=== PATIENT | female | born 1975 | race Caucasian/White ===

== ENCOUNTER → 2016-11-15 | Emergency (ER) | payer SELFPAY ==
[~2016-11-15] VITALS: Wt 80.0 kg
[~2016-11-15] MED LIST: ASPIRIN 325 MG TAB PO STA; LIDOCAINE/MYLANTA 40 ML BTL PO ONE; RANI150T9 PO
[2016-11-15 15:30] LABS: ADD SCAN DIFF NO
[2016-11-15 15:33] LABS: BASOPHIL # 0.1 10^3/ul (0.0-0.1); BASOPHILS % 0.4 % (0.0-2.0); EOSINOPHILS # 0.2 10^3/ul (0.0-0.5); EOSINOPHILS % 1.5 % (0.0-7.0); HEMATOCRIT 38.9 % (37.0-47.0); HEMOGLOBIN 12.8 g/dl (12.0-16.0); LYMPHOCYTES # 2.3 10^3/ul (0.8-2.9); LYMPHOCYTES % 20.2 % (15.0-51.0); MEAN CORPUSCULAR HEMOGLOBIN 29.4 pg (29.0-33.0); MEAN CORPUSCULAR HGB CONC 32.9 g/dl (32.0-37.0); MEAN CORPUSCULAR VOLUME 89.2 fl (82.0-101.0); MONOCYTE # 0.6 10^3/ul (0.3-0.9); MONOCYTES % 5.1 % (0.0-11.0); NEUTROPHIL # 8.2 10^3/ul (1.6-7.5); NEUTROPHILS % 72.4 % (39.0-77.0); PLATELET COUNT 295 10^3/UL (140-415); RED BLOOD COUNT 4.36 10^6/ul (4.20-5.40); RED CELL DISTRIBUTION WIDTH 12.9 % (11.5-14.5); WHITE BLOOD COUNT 11.3 10^3/ul (4.8-10.8)
[2016-11-15 15:40] VITALS: BP 121/82; PULSE 71; RESP 18
[2016-11-15 15:41] LABS: CHLORIDE 104 mmol/L (97-110); INR 0.96; POTASSIUM 3.9 mmol/L (3.5-5.1); PROTIME 12.8 Sec (12.2-14.2); SODIUM 142 mmol/L (135-144)
[2016-11-15 15:42] LABS: PARTIAL THROMBOPLASTIN TIME 26.1 Sec (25.0-35.0)
[2016-11-15 15:44] LABS: ANION GAP 17 (8-16); BLOOD UREA NITROGEN 14 mg/dl (7-20); CALCIUM 9.3 mg/dl (8.4-10.2); CARBON DIOXIDE 25 mmol/L (21-31); CREATININE 0.59 mg/dl (0.44-1.00); GLUCOSE 110 mg/dl (70-220)
--- NOTE | 2016-11-15 15:45 | RADRPT ---
PROCEDURE: Chest Radiograph. CLINICAL INDICATION: Chest pain TECHNIQUE: Single frontal chest radiograph. COMPARISON: None available FINDINGS: The cardiomediastinal silhouette is within normal limits. No infiltrate or effusion is seen. Th e bones are intact. IMPRESSION: 1. Unremarkable chest radiograph. RPTAT: KK .Too Townsend MD, MD Date Time Electronically viewed and signed by .Too Towsnend MD, on 11/15/2016 15:44 .B/
[2016-11-15 15:58] LABS: TROPONIN-I < 0.012 ng/ml (0.00-0.12)
--- NOTE | 2016-11-15 17:08 | ERD ---
ER Documentation Chief Complaint Date/Time DATE: 11/15/16 TIME: 17:04 Chief Complaint LEFT SIDE CHEST PAIN FOR THE PAST HR. INTERMITTENT SWEATING AND MILD SOB HPI This 40-year-old female presents with aching left sided chest pain began this morning. [place] like she had tingling in her left arm. Also had a short episode of shortness of breath. She denies any nausea or vomiting. She denies of any medical problems such as hypertension or diabetes. She was the pain has been going for a total of approximately 6 hours now. ROS All systems reviewed and are negative except as per history of present illness. Medications Home Meds Active Scripts Ranitidine Hcl* (Zantac*) 150 Mg Tablet, 150 MG PO BID Y for EPIGASTRIC PAIN, # 30 TAB Prov:BRIDGET REINOSO DO 11/15/16 Allergies Allergies: Coded Allergies: No Known Allergy (Unverified , 11/15/16) PMhx/Soc Medical and Surgical Hx: pt denies Medical Hx, pt denies Surgical Hx Hx Alcohol Use: No Hx Substance Use: No Hx Tobacco Use: No Smoking Status: Never smoker Physical Exam Vitals Vital Signs Date Time Temp Pulse Resp B/P Pulse Ox O2 Delivery O2 Flow Rate FiO2 11/15/16 15:40 71 18 121/82 100 Room Air 11/15/16 15:30 Nasal Cannula 2 11/15/16 11:39 98.5 76 20 139/70 100 Physical Exam Const: [] No distress Head: Atraumatic Eyes: Normal Conjunctiva ENT: Normal External Ears, Nose and Mouth. Neck: Full range of motion..~ No meningismus. Resp: Clear to auscultation bilaterally Cardio: Regular rate and rhythm, no murmurs Abd: Soft, non tender, non distended. Normal bowel sounds Skin: No petechiae or rashes Back: No midline or flank tenderness Ext: No cyanosis, or edema Neur: Awake and alert Psych: Normal Mood and Affect Result Diagram: 11/15/16 1520 11/15/16 1520 Results 24 hrs Laboratory Tests Test 11/15/16 15:20 Activated Partial Thromboplast Time 26.1Sec Anion Gap 17 Basophils # 0.110^3/ul Basophils % 0.4% Blood Urea Nitrogen 14mg/dl Calcium Level 9.3mg/dl Carbon Dioxide Level 25mmol/L Chloride Level 104mmol/L Creatinine 0.59mg/dl Eosinophils # 0.210^3/ul Eosinophils % 1.5% Glucose Level 110mg/dl Hematocrit 38.9% Hemoglobin 12.8g/dl INR International Normalized Ratio 0.96 Lymphocytes # 2.310^3/ul Lymphocytes % 20.2% Mean Corpuscular Hemoglobin 29.4pg Mean Corpuscular Hemoglobin Concent 32.9g/dl Mean Corpuscular Volume 89.2fl Mean Platelet Volume 11.0fl Monocytes # 0.610^3/ul Monocytes % 5.1% Neutrophils # 8.210^3/ul Neutrophils % 72.4% Nucleated Red Blood Cells # 0.010^3/ul Nucleated Red Blood Cells % 0.0/100WBC Platelet Count 18202^3/UL Potassium Level 3.9mmol/L Prothrombin Time 12.8Sec Prothrombin Time Ratio 1.0 Red Blood Count 4.3610^6/ul Red Cell Distribution Width 12.9% Sodium Level 142mmol/L Troponin I < 0.012ng/ml White Blood Count 11.310^3/ul Current Medications Medications (Trade) Dose Ordered Sig/Dada Route PRN Reason Start Time Stop Time Status Last Admin Dose Admin Aspirin (Aspirin) 325 mg ONCE STAT PO 11/15/16 15:09 11/15/16 15:11 DC 11/15/16 15:28 Miscellaneous Medication (Gi Cocktail (2)) 40 ml ONCE ONCE PO 11/15/16 15:30 11/15/16 15:31 DC 11/15/16 15:47 Miscellaneous Medication (Gi Cocktail (2)) 40 ml ONCE ONCE PO 11/15/16 16:00 11/15/16 16:00 DC Procedures/MDM 40-year-old female with no risk factors for acute coronary syndrome or pulmonary embolism. The express left-sided chest pain going on now for 8 hours. She had a negative troponin and complete normal EKG. She was given aspirin emergency room. Later she was given a GI cocktail which she said to come away almost all of her pain. She is currently asymptomatic in the ER and feeling completely normal. Amended discharge her with instructions to obtain an echocardiogram as an outpatient through her primary care doctor which I must providing list of low-cost clinics in the area. I have told to return to the ER for any concerning symptoms or return of pain whatsoever. His mild leukocytosis without any symptoms of pneumonia or urinary tract infection. EKG interpretation: Normal sinus rhythm rate of 80, normal axis, no ST or T- wave changes concerning for acute ischemia. 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 I see no widened mediastinum, no pneumothorax, no infiltrate, no pulmonary edema, no fracture. Departure Diagnosis: Primary Impression: Chest pain Condition: Stable Patient Instructions: Chest Pain, Uncertain Cause Referrals: [facility] YOU HAVE RECEIVED A MEDICAL SCREENING EXAM AND THE RESULTS INDICATE THAT YOU DO NOT HAVE A CONDITION THAT REQUIRES URGENT TREATMENT IN THE EMERGENCY DEPARTMENT. FURTHER EVALUATION AND TREATMENT OF YOUR CONDITION CAN WAIT UNTIL YOU ARE SEEN IN YOUR DOCTORS OFFICE WITHIN THE NEXT 1-2 DAYS. IT IS YOUR RESPONSIBILITY TO MAKE AN APPOINTMENT FOR FOLOW-UP CARE. IF YOU HAVE A PRIMARY DOCTOR --you should call your primary doctor and schedule an appointment IF YOU DO NOT HAVE A PRIMARY DOCTOR YOU CAN CALL OUR PHYSICIAN REFERRAL HOTLINE AT IF YOU CAN NOT AFFORD TO SEE A PHYSICIAN YOU CAN CHOSE FROM THE FOLLOWING [facility] [address] [facility]. [facility] [address] [facility] [facility] [address] [facility] [facility] [address] [facility]. [facility] [address] [facility]. [facility]. [address] Additional Instructions: Llame al doctor MAINGRIS y andrés yu YASIR PARA DENTRO DE 1-2 JOE.Dgale a la secretaria que nosotros le instruimos hacer esta yasir. Consigue yu yasir para un ECHOCARDIOGRAM. Avise o llame si hameed condicin se empeora antes de la yasir. Regresa aqui si peor o no mejor. BRIDGET REINOSO DO Nov 15, 2016 17:08
== END | disposition home or self-care (01) ==
LOC: E/R 11:35
DX: R07.9 Chest pain, unspecified (principal)
CPT/HCPCS: 36415; 71010; 80048; 84484; 85025; 85610; 85730; 93005